=== PATIENT | female | born 1980 | race Caucasian/White ===

== ENCOUNTER 2016-09-16 20:29 | Observation (INO) | payer BC ==
[2016-09-16 22:04] LABS: URINE APPEARANCE CLOUDY; URINE BILIRUBIN NEGATIVE (NEG); URINE BLOOD MODERATE (NEG); URINE COLOR YELLOW; URINE GLUCOSE (UA) NEGATIVE (NEG); URINE KETONE SMALL (NEG); URINE LEUKOCYTE ESTERASE NEGATIVE (NEG); URINE NITRITE NEGATIVE (NEG); URINE PH 6.5 (5.0-8.0); URINE PROTEIN MODERATE (NEG)
[2016-09-16 22:12] LABS: URINE EPITHELIAL CELLS 0-4 /[HPF] (0-10); URINE WBC 0-2 /[HPF] (0-5)
[2016-09-16 22:13] LABS: URINE BACTERIA 2+
[2016-09-16] MEDS ORDERED: PRENA1 CHEW TA1.4 M1 PO (23:42)
== END 2016-09-16 23:35 ==
LOC: LDR 20:29
PROVIDERS: ADMIT Obstetrics & Gynecology Obstetrics
DX: O47.03 False labor before 37 completed weeks of gestation, third trimester (principal); Z3A.34 34 weeks gestation of pregnancy; Z88.8 Allergy status to other drugs, medicaments and biological substances; Z88.6 Allergy status to analgesic agent
CPT/HCPCS: J3105

== ENCOUNTER 2016-09-18 07:25 | Inpatient (IN) | payer BC ==
[~2016-09-18 07:25] MED LIST: PRENA1 CHEW TA1.4 M1 PO
[2016-09-18 09:28] LABS: BASO % 0.2 % (0-2); EOS % 1.8 % (0-7); EOSINOPHIL ABSOLUTE COUNT 0.2 tho/cmm (0.0-0.7); HCT-HEMATOCRIT 35.9 % (34.0-49.0); HGB-HEMOGLOBIN 12.3 gm/dl (12.0-15.5); IMMATURE GRANULOCYTES ABSOLUTE 0.16 tho/cmm (0-0.03); IMMATURE GRANULOCYTES PERCENT 1.3 % (0-0.3); LYMPH % 9.4 % (20-45); LYMPH ABSOLUTE COUNT 1.2 tho/cmm (0.8-4.5); MCHC MEAN CORPUSCULAR HGB CONC 34.3 % (32.0-36.0); MCV (MEAN CELL VOLUME) 90.4 fl (82.0-96.0); MEAN PLATELET VOLUME 11.2 cmc (9.4-12.4); MONO % 7.4 % (0-12); MONOCYTE ABSOLUTE COUNT 0.9 tho/cmm (0.0-1.2); NEUTROPHILS % 79.9 % (40-80); PLATELET COUNT 95 tho/cmm (150-450); RED BLOOD COUNT 3.97 mil/cmm (4.00-5.20); RED CELL DISTRIBUTION WIDTH 13.2 % (12.4-16.4); WHITE BLOOD COUNT 12.5 tho/cmm (4.0-10.0)
[2016-09-18 09:28] LABS: URINE BILIRUBIN NEGATIVE (NEG); URINE BLOOD MODERATE (NEG); URINE GLUCOSE (UA) NEGATIVE (NEG); URINE KETONE NEGATIVE (NEG); URINE LEUKOCYTE ESTERASE NEGATIVE (NEG); URINE NITRITE NEGATIVE (NEG); URINE PROTEIN MODERATE (NEG)
[2016-09-18 09:32] LABS: URINE APPEARANCE CLEAR; URINE COLOR YELLOW
[2016-09-18 09:36] LABS: ALB/GLOB RATIO 0.6 (0.8-2.0); ALBUMIN 2.7 g/dl (3.5-5.0); ALKALINE PHOSPHATASE 136 U/L (33-138); ALT/SGPT 197 U/L (12-78); BILIRUBIN,TOTAL 0.6 mg/dl (0-1.5); BLOOD UREA NITROGEN 9 mg/dl (6-24); CALCIUM 8.4 mg/dl (8.5-10.5); CARBON DIOXIDE-VENOUS 21 mmol/L (22-32); CHLORIDE 106 mmol/l (96-110); CREATININE 0.83 mg/dl (0.50-1.10); GLUCOSE 93 mg/dL (70-110); SODIUM 138 mmol/L (135-145); eGFR VALUE FOR BLACK >90 mL/Min
[2016-09-18 09:37] LABS: URINE BACTERIA 1+; URINE EPITHELIAL CELLS 0-2 /[HPF] (0-10)
[2016-09-18 09:45] LABS: URINE PRT/CR RATIO 0.45 Ratio (0.0-0.20); URINE TOTAL PROTEIN-RANDOM 55.9 mg/dl (<11.8)
[2016-09-18 09:48] LABS: ANION GAP 15 mmol/L (0-20)
[2016-09-18 09:49] LABS: AST/SGOT 221 U/L (10-40); POTASSIUM 4.2 mmol/L (3.7-5.1)
[2016-09-18 11:34] LABS: INR 0.9 INR (0.9-1.1); PROTHROMBIN TIME 10.8 SECONDS (9.0-13.6)
[2016-09-18 12:39] LABS: CORD BLOOD PH ARTERIAL 7.28 Units (7.18-7.38)
[2016-09-18 12:40] LABS: CORD BLOOD PH ARTERIAL 7.26 Units (7.18-7.38)
[2016-09-18 18:05] LABS: BASO % 0.1 % (0-2); EOS % 0.3 % (0-7); HCT-HEMATOCRIT 33.2 % (34.0-49.0); HGB-HEMOGLOBIN 11.4 gm/dl (12.0-15.5); IMMATURE GRANULOCYTES ABSOLUTE 0.11 tho/cmm (0-0.03); IMMATURE GRANULOCYTES PERCENT 0.8 % (0-0.3); LYMPH ABSOLUTE COUNT 1.1 tho/cmm (0.8-4.5); MCH (MEAN CORPUSCULAR HGB) 30.6 pg (28.0-32.0); MCHC MEAN CORPUSCULAR HGB CONC 34.3 % (32.0-36.0); MCV (MEAN CELL VOLUME) 89.2 fl (82.0-96.0); MONO % 4.2 % (0-12); MONOCYTE ABSOLUTE COUNT 0.6 tho/cmm (0.0-1.2); NEUTROPHIL ABSOLUTE COUNT 11.8 tho/cmm (1.6-8.0); NEUTROPHIL-AUTOMATED 11.8 tho/cmm (1.6-8.0); NEUTROPHILS % 86.6 % (40-80); PLATELET COUNT 86 tho/cmm (150-450); RED BLOOD COUNT 3.72 mil/cmm (4.00-5.20); RED CELL DISTRIBUTION WIDTH 13.2 % (12.4-16.4); WHITE BLOOD COUNT 13.6 tho/cmm (4.0-10.0)
[2016-09-18 18:21] LABS: ALB/GLOB RATIO 0.5 (0.8-2.0); ALBUMIN 2.3 g/dl (3.5-5.0); ALKALINE PHOSPHATASE 127 U/L (33-138); ALT/SGPT 179 U/L (12-78); ANION GAP 17 mmol/L (0-20); AST/SGOT 157 U/L (10-40); BILIRUBIN,TOTAL 0.6 mg/dl (0-1.5); BLOOD UREA NITROGEN 7 mg/dl (6-24); CALCIUM 8.4 mg/dl (8.5-10.5); CARBON DIOXIDE-VENOUS 19 mmol/L (22-32); CHLORIDE 108 mmol/l (96-110); CREATININE 0.81 mg/dl (0.50-1.10); POTASSIUM 4.2 mmol/L (3.7-5.1); SODIUM 140 mmol/L (135-145); eGFR VALUE FOR BLACK >90 mL/Min
[2016-09-18 18:22] LABS: GLUCOSE 141 mg/dL (70-110)
[2016-09-19 06:38] LABS: BASO % 0.1 % (0-2); EOS % 0.1 % (0-7); HCT-HEMATOCRIT 31.9 % (34.0-49.0); HGB-HEMOGLOBIN 10.7 gm/dl (12.0-15.5); IMMATURE GRANULOCYTES ABSOLUTE 0.13 tho/cmm (0-0.03); IMMATURE GRANULOCYTES PERCENT 0.7 % (0-0.3); LYMPH % 10.5 % (20-45); LYMPH ABSOLUTE COUNT 1.9 tho/cmm (0.8-4.5); MCH (MEAN CORPUSCULAR HGB) 30.4 pg (28.0-32.0); MCHC MEAN CORPUSCULAR HGB CONC 33.5 % (32.0-36.0); MCV (MEAN CELL VOLUME) 90.6 fl (82.0-96.0); MEAN PLATELET VOLUME 11.3 cmc (9.4-12.4); MONO % 4.1 % (0-12); MONOCYTE ABSOLUTE COUNT 0.7 tho/cmm (0.0-1.2); NEUTROPHIL ABSOLUTE COUNT 14.9 tho/cmm (1.6-8.0); NEUTROPHIL-AUTOMATED 14.9 tho/cmm (1.6-8.0); NEUTROPHILS % 84.5 % (40-80); PLATELET COUNT 102 tho/cmm (150-450); RED BLOOD COUNT 3.52 mil/cmm (4.00-5.20); RED CELL DISTRIBUTION WIDTH 13.3 % (12.4-16.4); WHITE BLOOD COUNT 17.6 tho/cmm (4.0-10.0)
[2016-09-19 06:59] LABS: ALB/GLOB RATIO 0.6 (0.8-2.0); ALBUMIN 2.3 g/dl (3.5-5.0); ALKALINE PHOSPHATASE 114 U/L (33-138); ALT/SGPT 125 U/L (12-78); ANION GAP 14 mmol/L (0-20); AST/SGOT 80 U/L (10-40); BILIRUBIN,TOTAL 0.3 mg/dl (0-1.5); BLOOD UREA NITROGEN 11 mg/dl (6-24); CALCIUM 8.8 mg/dl (8.5-10.5); CARBON DIOXIDE-VENOUS 23 mmol/L (22-32); CHLORIDE 109 mmol/l (96-110); CREATININE 0.88 mg/dl (0.50-1.10); GLUCOSE 120 mg/dL (70-110); POTASSIUM 4.8 mmol/L (3.7-5.1); SODIUM 141 mmol/L (135-145); eGFR VALUE FOR BLACK >90 mL/Min
[2016-09-22] MEDS ORDERED: PERCOCET 5-3251 EACH PO (10:39)
[2016-09-22] MEDS ORDERED: COLACE100 M1 PO (10:40)
== END 2016-09-22 14:10 | DRG 765 ==
LOC: LDR 07:25 → OBGF 14:35
PROVIDERS: Anesthesiology; Obstetrics & Gynecology; Obstetrics & Gynecology Maternal & Fetal Medicine; ADMIT Family Medicine
PROC: 10D00Z1 Extraction of Products of Conception, Low, Open Approach (ICD-10-PCS; principal; 2016-09-18)
DX: O32.1XX1 Maternal care for breech presentation, fetus 1 (principal); O30.003 Twin pregnancy, unspecified number of placenta and unspecified number of amniotic sacs, third trimester; Z37.0 Single live birth; O14.14 Severe pre-eclampsia complicating childbirth; Z3A.34 34 weeks gestation of pregnancy
CPT/HCPCS: J0690; J1100; J1170; J2590